=== PATIENT | male | born 1945 | race American Indian/Alaskan Native ===

== ENCOUNTER 2017-06-01 14:07 | Outpatient (CLI) | payer MEDICARE ==
--- NOTE | 2017-06-02 11:32 | XRay Report ---
FINAL REPORT EXAM: XR SHOULDER 2+V LT HISTORY: LEFT SHOULDER PAIN TECHNIQUE: 4 views of the left shoulder PRIORS: None. FINDINGS: Chronic appearing smoothly marginated ossicle adjacent to the coracoid process of the scapula may be developmental variation or old trauma. There is degenerative or posttraumatic ossification in the coracoclavicular ligament. Slight elevation of the distal clavicle relative to the acromion may reflect prior AC joint separation. 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 There is degenerative cortical remodeling at undersurface of the acromion and the superior margin of the greater tuberosity. Degenerative articular surface irregularity is present at the glenohumeral joint. No acute fracture or dislocation is evident. The humeral head is superiorly subluxed with reduction in the acromiohumeral interval. IMPRESSION: No acute skeletal pathology Multifocal degenerative change Superiorly subluxed humeral head with reduced acromiohumeral interval may reflect rotator cuff tear Degenerative and/or posttraumatic change in the region of the AC joint and coracoclavicular ligament
== END 2017-06-01 14:08 | disposition home or self-care (01) ==
LOC: SPVIMAG 14:07
PROVIDERS: ATTEND Orthopaedic Surgery Sports Medicine
DX: S43.002A Unspecified subluxation of left shoulder joint, initial encounter (principal); M19.012 Primary osteoarthritis, left shoulder; X58.XXXA Exposure to other specified factors, initial encounter; Y93.89 Activity, other specified; Y92.89 Other specified places as the place of occurrence of the external cause; Y99.8 Other external cause status